=== PATIENT | female | born 1960 | race Caucasian/White ===

== ENCOUNTER 2017-04-13 09:27 | Emergency (ER) | payer BC, OTHER ==
--- NOTE | 2017-04-13 09:28 | PDOC ---
History of Present Illness - General Chief Complaint: Injury Stated Complaint: RIGHT 5TH FINGER LACERATION Time Seen by Provider: 04/13/17 09:28 History Source: Patient Exam Limitations: No Limitations - History of Present Illness Initial Comments: 56 yo F history insomnia and anxiety presents with R 5th finger laceration. She cut it with a broken glass while washing dishes just [employer]. No other injuries. Cannot recall her last tetanus booster. Moderate bleeding at the time, which eventually stopped with direct pressure. No other injuries. Denies numbness, weakness. Past History - Past Medical History Allergies/Adverse Reactions: Allergies Allergy/AdvReac Type Severity Reaction Status Date / Time No Known Allergies Allergy Unverified 04/13/17 09:29 Home Medications: Ambulatory Orders Clonazepam 0.125 mg PO BID PRN 04/13/17 Eszopiclone [Lunesta] 1 mg PO HS 04/13/17 Review of Systems - Review of Systems Able to Perform ROS?: Yes Comments:: GENERAL/CONSTITUTIONAL: No fever or chills. No weakness. HEAD, EYES, EARS, NOSE AND THROAT: No change in vision. No ear pain or discharge. No sore throat. MUSCULOSKELETAL: No joint or muscle swelling or pain. No neck or back pain. SKIN: +Laceration to R 5th finger. NEUROLOGIC: No headache, vertigo, loss of consciousness, or change in strength/ sensation. ENDOCRINE: No increased thirst. No abnormal weight change. HEMATOLOGIC/LYMPHATIC: No anemia, easy bleeding, or history of blood clots. ALLERGIC/IMMUNOLOGIC: No hives or skin allergy. *Physical Exam - Physical Exam Comments: GENERAL: Awake, alert, and fully oriented, in no acute distress HEAD: No signs of trauma EXTREMITIES: R 5th finger with 1 cm U-shaped laceration, no active bleeding. Sensation and motor intact. Remainder of extremities with normal range of motion , no edema. No clubbing or cyanosis. No cords, erythema, or tenderness NEUROLOGICAL: Cranial nerves II through XII grossly intact. Normal speech, normal gait SKIN: Warm, Dry, normal turgor. Procedures - Laceration/Wound Repair Right Hand 5th digit Wound Length: to 2.5 cm Wound Explored: clean, no foreign body present Wound's Depth, Shape: superficial, flap Irrigated w/ Saline: Yes Anesthesia: 1% Lidocaine Amount of Anesthetic (ccs): 2 (digital block) Wound Repaired With: Sutures Suture Size/Type: 5:0, nylon Number of Sutures: 3 Layer Closure: No Sterile Dressing Applied: Yes Progress: +Hemostasis. Patient tolerated well. Tubular gauze dressing placed. *DC/Admit/Observation/Transfer Diagnosis at time of Disposition: Laceration of finger of left hand Qualifiers: Encounter type: initial encounter Finger: little finger Damage to nail status: without damage Foreign body presence: without foreign body Qualified Code(s): S61.217A - Laceration without foreign body of left little finger without damage to nail, initial encounter - Discharge Dispostion Disposition: HOME Condition at time of disposition: Stable Admit: No - Patient Instructions Printed Discharge Instructions: DI for Laceration Repair -- Simple Additional Instructions: DO NOT GET THE WOUND WET FOR 48 HOURS. AFTER THAT IT IS OK TO GET IT WET WITH WATER. NO LOTIONS, CREAMS, OINTMENTS, OR SOAPS, THEY CAN INTERFERE WITH THE SUTURES. GAUZE DRESSING NEEDED FOR COMFORT. RETURN TO THIS OR ANOTHER ER BETWEEN 04/22-04/24 TO HAVE SUTURES REMOVED. IF YOU HAVE SEVERE PAIN, REDNESS, SWELLING, OR REDNESS UP THE ARM, RETURN TO THE ER IMMEDIATELY.
[2017-04-13] MEDS ORDERED: DIPHTH,PERTUSS(ACELL),TET VAC 0.5 ML VIAL IM ONE (09:39)
[2017-04-13 09:41] VITALS: BP 128/79; PULSE 62; TEMP 99.2; BMI 29.1
== END 2017-04-13 10:12 | disposition home or self-care (01) ==
LOC: FER 09:27
PROC: 0HQFXZZ Repair Right Hand Skin, External Approach (ICD-10-PCS; principal; 2017-04-13)
DX: S61.216A Laceration without foreign body of right little finger without damage to nail, initial encounter (principal); W25.XXXA Contact with sharp glass, initial encounter; Y93.G1 Activity, food preparation and clean up; Y92.9 Unspecified place or not applicable; F41.9 Anxiety disorder, unspecified
CPT/HCPCS: 73140-TC-RT; 99281-25

== ENCOUNTER 2017-04-23 15:08 | Emergency (ER) | payer BC ==
[2017-04-23 15:23] VITALS: BP 121/66; PULSE 56; TEMP 98; BMI 28.6
--- NOTE | 2017-04-23 15:28 | PDOC ---
Suture Removal/Wound Check HPI - History of Present Illness Chief Complaint: Suture/Staple Removal (other) Stated Complaint: SUTURE REMOVAL Time Seen by Provider: 04/23/17 15:27 Past History - Past Medical History Allergies/Adverse Reactions: Allergies No Known Allergies Allergy (Verified 04/23/17 15:10) Home Medications: Ambulatory Orders Clonazepam 0.125 mg PO BID PRN 04/13/17 Eszopiclone [Lunesta] 1 mg PO HS 04/13/17 - Immunization History Tetanus Status: Unknown - Social History Smoking Status: Never smoked *DC/Admit/Observation/Transfer Diagnosis at time of Disposition: Encounter for removal of sutures - Discharge Dispostion Disposition: HOME Condition at time of disposition: Improved Admit: No - Patient Instructions Printed Discharge Instructions: DI for Suture Removal Additional Instructions: Recommended to keep moist with ointment and cover with a Band-Aid will one more week. Recheck if there is any pain, redness, swelling, or drainage from the wound.
== END 2017-04-23 15:34 | disposition home or self-care (01) ==
LOC: FER 15:08
DX: Z48.02 Encounter for removal of sutures (principal)
CPT/HCPCS: 99281-25